=== PATIENT | male | born 1975 | race Hispanic/Latino ===

== ENCOUNTER 2021-02-18 10:26 | Emergency (ER) | payer MEDICARE, OTHER ==
[~2021-02-18] VITALS: Ht 167.6 cm; Wt 104.3 kg
[2021-02-18] MEDS ORDERED: 0.9%NACL 1000ML 1,000 ML IV ONE ×4 (11:27→15:30)
[2021-02-18 11:48] LABS: HEMATOCRIT 46.5 % (42-54); MEAN CORPUSCULAR HGB CONC 33.8 g/dL (32.0-36.0); MEAN CORPUSCULAR VOLUME 88.7 fL (79-99); PLATELET COUNT (AUTO) 344 K/uL (130-400); RED BLOOD CELL COUNT(AUTO) 5.24 MIL/uL (4.50-6.20); RED CELL DISTRIBUTION WIDTH 12.8 % (11.0-15.5); WHITE BLOOD COUNT (AUTO) 9.9 K/uL (4.8-10.8)
[2021-02-18 12:01] LABS: POTASSIUM 3.9 mmol/L (3.5-5.1)
[2021-02-18 12:15] LABS: ALBUMIN 3.8 g/dL (3.5-5.0); BILIRUBIN,TOTAL 0.4 mg/dL (0.2-1.0); TOTAL PROTEIN, SERUM 7.6 g/dL (6.0-8.3)
[2021-02-18 12:17] LABS: BASOPHILS % (MANUAL) 3 % (0-2); EOSINOPHILS % (MANUAL) 2 % (1-6); LYMPHOCYTES % (MANUAL) 25 % (22-44); MAN.DIFF COMMENT-IMPRESSION MANUAL DIFFERENTIAL; MONOCYTES % (MANUAL) 6 % (2-9); PLATELET MORPHOLOGY COMMENT ADEQUATE; SEGMENTED NEUTROPHILS % 64 % (40-70)
[2021-02-18 16:09] VITALS: BP 142/82
== END 2021-02-18 18:21 | disposition home or self-care (01) ==
LOC: EDH 10:26
DX: M62.82 Rhabdomyolysis (principal); F20.9 Schizophrenia, unspecified
CPT/HCPCS: 36415; 80053; 82550 ×2; 85025; 96360; 96361; 99291; J7030